=== PATIENT | male | born 1965 | race Two or more races ===

== ENCOUNTER 2018-11-18 20:26 | Emergency (ER) | payer BC ==
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
== END 2018-11-18 22:20 | disposition home or self-care (01) ==
LOC: ER 20:26
DX: S13.9XXA Sprain of joints and ligaments of unspecified parts of neck, initial encounter (principal); S03.9XXA Sprain of joints and ligaments of unspecified parts of head, initial encounter; I10 Essential (primary) hypertension; E11.9 Type 2 diabetes mellitus without complications; E78.5 Hyperlipidemia, unspecified; V89.2XXA Person injured in unspecified motor-vehicle accident, traffic, initial encounter; Y93.89 Activity, other specified; Y92.410 Unspecified street and highway as the place of occurrence of the external cause; Y99.8 Other external cause status
CPT/HCPCS: 70450-TC; 72125-TC